=== PATIENT | male | born 1955 | race Caucasian/White ===

== ENCOUNTER 2018-10-14 12:07 | Emergency (ER) | payer BC ==
[~2018-10-14] VITALS: Ht 171.4 cm; Wt 87.8 kg
[2018-10-14 12:17] VITALS: BP 139/65
--- NOTE | 2018-10-14 13:32 | NUR ---
PER PICC NURSE- IT WILL BE 1 HR UNTIL SHE IS FREE
--- NOTE | 2018-10-14 14:12 | NUR ---
PICC NURSE AT THE BEDSIDE AT THIS TIME
--- NOTE | 2018-10-14 15:26 | NUR ---
Extended PIV inserted to right upper arm basilic vein x 2 attempts using ultrasound. Janelle well Addendum: 10/14/18 at 1527 by Oralia Mason RN Amended: Links added.
== END 2018-10-14 14:45 | disposition home or self-care (01) ==
LOC: ER 12:08
DX: T82.534A Leakage of infusion catheter, initial encounter (principal); E78.00 Pure hypercholesterolemia, unspecified; I10 Essential (primary) hypertension; E11.9 Type 2 diabetes mellitus without complications; G89.29 Other chronic pain; Z98.890 Other specified postprocedural states; Z90.89 Acquired absence of other organs
CPT/HCPCS: 43763; 99285